=== PATIENT | female | born 2000 | race Caucasian/White ===

== ENCOUNTER 2021-04-04 12:16 | Emergency (ER) | payer BC ==
[2021-04-04 12:23] VITALS: BP 124/76; PULSE 81; TEMP 99.5; BMI 22.1
[2021-04-04] MEDS ORDERED: SODIUM CHLORIDE 1,000 ML IV STA ×2 (12:28→14:56)
[2021-04-04] MEDS ORDERED: ONDANSETRON 4 MG/2 ML VIAL IVPB ONE (12:28)
[2021-04-04 12:47] LABS: HCG,QUALITATIVE URINE Negative
[2021-04-04 13:14] LABS: ALBUMIN 4.8 g/dl (3.4-5.0); BASO % 0.4 % (0-2.0); BILIRUBIN,TOTAL 0.5 mg/dl (0.2-1); CALCIUM 9.2 mg/dl (8.5-10); CREATININE 0.6 mg/dl (0.55-1.3); EOS % 0.1 % (0-4.5); HEMATOCRIT 40.3 % (32.4-45.2); HEMOGLOBIN 14.2 GM/dl (10.7-15.3); LYMPH % 31.3 % (8-40); MCH 31.3 pg (25.7-33.7); MCHC 35.3 g/dl (32.0-36.0); MEAN CELL VOLUME 88.7 fl (80-96); MEAN PLT VOLUME 6.7 fl (7.5-11.1); MONO % 6.7 % (3.8-10.2); NEUT % 61.5 % (42.8-82.8); PLATELET COUNT 209 K/MM3 (134-434); RBC 4.55 M/mm3 (3.60-5.2); TOT PROT 8.1 g/dl (6.4-8.2); WHITE BLOOD COUNT 5.4 K/mm3 (4.0-10.8)
[2021-04-04] MEDS ORDERED: MAG HYDROX/AL HYDROX/SIMETH 30 ML UNIT-DOSE CUP PO ONE (13:54)
[2021-04-04] MEDS ORDERED: PANTOPRAZOLE SODIUM 40 MG in SODIUM CHLORIDE 100 ML IVPB ONE (13:54)
[2021-04-04] MEDS ORDERED: PANTOPRAZOLE SODIUM 40 MG VIAL ONE (14:10)
[2021-04-04] MEDS ORDERED: MAG HYDROX/AL HYDROX/SIMETH 30 ML UNIT-DOSE CUP ONE (14:10)
[2021-04-04 16:25] LABS: BILIRUBIN,TOTAL 0.4 mg/dl (0.2-1); CALCIUM 8.6 mg/dl (8.5-10); CREATININE 0.6 mg/dl (0.55-1.3); TOT PROT 6.8 g/dl (6.4-8.2)
== END 2021-04-04 17:27 | disposition home or self-care (01) ==
LOC: FER 12:16
PROC: 3E033GC Introduction of Other Therapeutic Substance into Peripheral Vein, Percutaneous Approach (ICD-10-PCS; principal; 2021-04-04)
PROC: 3E0337Z Introduction of Electrolytic and Water Balance Substance into Peripheral Vein, Percutaneous Approach (ICD-10-PCS; principal; 2021-04-04)
DX: R11.2 Nausea with vomiting, unspecified (principal); E87.1 Hypo-osmolality and hyponatremia; R94.5 Abnormal results of liver function studies
CPT/HCPCS: 36415; 76700-TC; 80053; 81003; 84703; 85025; 99284-25